=== PATIENT | male | born 1970 | race Caucasian/White ===

== ENCOUNTER 2020-03-25 17:33 | Emergency (ER) | payer OTHER, SELFPAY ==
--- NOTE | ~2020-03-25 | XR_ITS ---
XR ankle LT min 3V DATE: 03/25/2020 18:13 INDICATION: Rolled ankle in a hole. Pain and swelling laterally. TECHNIQUE: 4 views COMPARISON: None FINDINGS: There is lateral soft tissue swelling. No fracture or dislocation of the ankle or disruptio n of the ankle mortise is detected. No periosteal reaction or bone destruction. Posterior calcaneal enthesopathy. IMPRESSION: Lateral soft tissue swelling Reviewed, dictated and finalized at location A.
[2020-03-25 17:36] VITALS: BP 153/93; PULSE 97; RESP 20; TEMP 36.8; O2SAT 100
--- NOTE | 2020-03-25 17:55 | ECG_ITS ---
Measurements Intervals [place] Rate: 79 P: 41 ME: 152 QRS: 11 QRSD: 93 T: 28 QT: 370 QTc: 425 Interpretive Statements SINUS RHYTHM NORMAL ECG Electronically Signed On 03-26-2020 7:53:20 CDT by Joseph Merritt D.O.
--- NOTE | 2020-03-25 17:56 | ED.LOWEXIN ---
HPI - Extremity Injury (Lower) General Chief Complaint: Extremity Injury, Lower Stated Complaint: L ankle pain Time Seen by Provider: 03/25/20 17:47 Source: patient Mode of arrival: ambulatory Limitations: no limitations History of Present Illness HPI Narrative: This patient is a 49 year old male who presents for evaluation of left ankle injury. PAtient states he was cutting his grass with a riding lawnmower for a 1.5 hours. He states 2.5 hours ago he twisted his left ankle stepping off the lawnmower. He reports hearing a pop. THis caused his to fall onto the grass. HE states he felt like he was going to pass out. He has a history of vasovagal with blood draws, and he states this felt similar. He was able to get himself off the ground and he rode the lawnmower back to the house. He states he laid down and called his . He denies chest pain or sob. He states he never completely loss consciousness. He thinks he was overheated and he reports cramping to his left foot. Review of Systems Review of Systems: All systems reviewed & are unremarkable except as noted in HPI and below Eyes: Eyes: Reports change in vision ENT: Reports dizziness Cardiovascular: Cardiovascular: Denies chest pain and Denies rapid heart rate Respiratory: Respiratory: Denies cough and Denies dyspnea Gastrointestinal: Gastrointestinal: Denies abdominal pain Musculoskeletal: Musculoskeletal: Reports arthralgias (left ankle) PMFSH Past Medical History Medical History (Updated 03/25/20 @ 18:54 by Mine Dowell MD) Hyperlipidemia Hypertension Surgical History Surgical History (Updated 03/25/20 @ 18:01 by Mine Dowell MD) No significant past surgical history Social History Social History (Updated 03/25/20 @ 18:01 by Mine Dowell MD) Smoking status: Never smoker Exam Narrative: Exam Narrative: GENERAL: Well-appearing, well-nourished, and in no acute distress. HEAD: Normocephalic, atraumatic EYES: PERRLA and EOMI, conjunctiva clear without discharge THROAT:Mucous membranes moist, Oropharynx normal without erythema, exudate, peritonsillar swelling or fluctuance NECK: Supple, without lymphadenopathy or mass RESPIRATORY: No respiratory distress, Airway patent, Respirations non-labored, Clear to auscultation without rales, rhonchi or wheeze HEART: Regular rate and rhythm. No murmur heard. Normal peripheral pulses. ABDOMEN: Soft, nontender, nondistended, normal active bowel sounds. No masses. No rebound or guarding, No organomegaly. EXTREMITIES: left ankle tendernss with swelling at lateral malleolus NEURO: Alert and oriented x3. CN 2-12 grossly intact. No focal deficits. PSYCH: Normal mood and affect. Course Vital Signs Vital signs: Vital Signs Temperature 98.3 F 03/25/20 17:36 Pulse Rate 97 03/25/20 17:36 Respiratory Rate 20 03/25/20 17:36 Blood Pressure 153/93 H 03/25/20 17:36 Pulse Oximetry 100 03/25/20 17:36 Temperature 98.3 F 03/25/20 17:36 Pulse Rate 97 03/25/20 17:36 Respiratory Rate 03/25/20 17:36 Blood Pressure 153/93 H 03/25/20 17:36 Pulse Oximetry 100 03/25/20 17:36 MDM - Extremity Injury (Lower) Lab Data Attestation: I reviewed the patient's lab results. Result diagrams: 03/25/20 18:05 03/25/20 18:05 Labs: Lab Results 03/25/20 03/25/20 Range/Units 18:05 18:05 WBC 11.3 H (4.5-10.0) K/mm3 RBC 4.66 (4.6-6.20) M/mm3 Hgb 14.2 (14.0-18.0) g/dL Hct 40.2 L (42.0-52.0) % MCV 86.3 (80-100) fl MCH 30.5 (26-34) pg MCHC 35.3 (32-36) g/dl RDW 11.8 (11.5-14.5) % Plt Count 233 (150-375) k/mm3 MPV 9.9 (7.4-10.4) fl Immature Gran % (Auto) 0.5 (0-0.5) % Neut % (Auto) 74.1 H (45.5-73.1) % Lymph % (Auto) 14.1 L (18.3-44.2) % Fleming % (Auto) 6.4 (2.6-8.5) % Eos % (Auto) 4.5 H (0-4.4) % Baso % (Auto) 0.4 (0.2-1.2) % Lymph # (Auto) 1.59 (0.9-3.2) K/mm3 Fleming # (Auto) 0.
[2020-03-25 18:12] LABS: Basophils Absolute Auto 0.1 K/mm3 (0.0-0.1); Basophils Percent Auto 0.4 % (0.2-1.2); Eosinophils Absolute Auto 0.5 K/mm3 (0-0.3); Eosinophils Percent Auto 4.5 % (0-4.4); Hematocrit 40.2 % (42.0-52.0); Hemoglobin 14.2 g/dL (14.0-18.0); Immature Granulocyte Absolute 0.06 K/mm3 (0.00-0.031); Immature Granulocyte Percent A 0.5 % (0-0.5); Lymphocytes Absolute Auto 1.59 K/mm3 (0.9-3.2); Lymphocytes Percent Auto 14.1 % (18.3-44.2); Mean Corpuscular HGB Conc 35.3 g/dl (32-36); Mean Corpuscular Hemoglobin 30.5 pg (26-34); Mean Corpuscular Volume 86.3 fl (80-100); Mean Platelet Volume 9.9 fl (7.4-10.4); Monocytes Absolute Auto 0.7 K/mm3 (0.1-0.6); Monocytes Percent Auto 6.4 % (2.6-8.5); Neutrophils Absolute Auto 8.4 K/mm3 (1.3-6.7); Neutrophils Percent Auto 74.1 % (45.5-73.1); Platelet Count Result 233 k/mm3 (150-375); Red Blood Count 4.66 M/mm3 (4.6-6.20); Red Cell Distribution Width 11.8 % (11.5-14.5); White Blood Count 11.3 K/mm3 (4.5-10.0)
[2020-03-25 18:23] LABS: Alanine Aminotransferase 140 U/L (4-50); Albumin Level 4.8 g/dL (3.5-5.1); Alkaline Phosphatase 138 U/L (38-126); Anion Gap 11 mmol/L (8-16); Aspartate Amino Transferase 67 U/L (17-59); Bilirubin,Total 0.4 mg/dL (0.2-1.3); Blood Urea Nitrogen 16 mg/dL (9-20); Carbon Dioxide 25 mmol/L (22-30); Chloride 100 mmol/L (98-107); Creatine Kinase 269 U/L (55-170); Estimated Glomerular Filt Rate > 60; Glucose 126 mg/dL (75-110); Sodium 136 mmol/L (137-145)
== END 2020-03-25 19:11 | disposition home or self-care (01) ==
PROVIDERS: Emergency Provider General Practice
DX: S93.402A Sprain of unspecified ligament of left ankle, initial encounter (principal); R55 Syncope and collapse; E78.5 Hyperlipidemia, unspecified; I10 Essential (primary) hypertension; X50.9XXA Other and unspecified overexertion or strenuous movements or postures, initial encounter
CPT/HCPCS: 36415; 73610; 80053; 82550; 85025; 93005; 99283